=== PATIENT | male | born 2000 | race Caucasian/White ===

== ENCOUNTER 2024-05-18 00:37 | Emergency (ER) | payer BC, SELFPAY ==
--- NOTE | 2024-05-18 00:46 | ED_ITS ---
HPI - General Adult General Chief complaint: Chest Pain Stated complaint: Chest pain Time Seen by Provider: 05/18/24 00:39 History of Present Illness HPI narrative: Patient c/o intermittent CP , SOB for 2 months. Patient states it has been worse in the last 2-3 days, and especially worse waking him up from sleep. 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 Patient took 800mg ibuprofen @ noon for a BALL. 23-year-old man presenting to the emergency department with his father with concern of intermittent chest pain and exertional short of breath over the last couple of months. Has episodes where he will wake with this from sleep, heart beating hard. This has been more intense over the last 2-3 days. Underlying history of Xtaln-Gnoisncqp-Vniop and has passed stress test He has also been having headache. No fever. No cough or cold symptoms. Admits to increased anxiety over this. 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 Reserved. Appears mildly anxious. Skin is warm and dry. Cranial nerves 2-12 intact. Lungs are clear. No supraclavicular crepitus. Heart in regular rate and rhythm. Abdomen overweight soft nontender extremities are well perfused without edema. Const: Vital Signs, click to edit/add: Vital Signs - 24 hr 05/18/24 00:48 05/18/24 01:00 05/18/24 01:30 Temperature 98.0 F Pulse Rate [Right Pulse Oximeter] 80 75 84 Respiratory Rate 18 20 12 Blood Pressure [Le ft Upper Arm] 158/92 H 173/109 H 128/63 Pulse Oximetry 100 98 99 Oxygen Delivery Me thod Room Air 05/18/24 02:00 05/18/24 02:30 05/18/24 03:00 Temperature Pulse Rate [Right Pulse Oximeter] 69 67 80 Respiratory Rate 20 19 19 Blood Pressure [Le ft Upper Arm] 131/62 141/77 H 130/58 L Pulse Oximetry 98 96 99 Oxygen Delivery Nh thod Documenting provider has reviewed patient's vital signs: yes Course Vital Signs Vital signs: Initial Vital Signs Respiratory Effort Normal, Spontaneous, Non-Labored 05/18/24 00:38 Respiratory Depth Normal 05/18/24 00:38 Respiratory Pattern Normal 05/18/24 00:38 Vital Signs Temperature 98.0 F 05/18/24 00:48 Pulse Rate 80 05/18/24 00:48 Respiratory Rate 18 05/18/24 00:48 Blood Pressure 158/92 H 05/18/24 00:48 Pulse Oximetry 100 05/18/24 00:48 Oxygen Delivery Method Room Air 05/18/24 00:48 Temperature 98.0 F 05/18/24 00:48 Pulse Rate 80 05/18/24 03:00 Respiratory Rate 19 05/18/24 03:00 Blood Pressure 130/58 L 05/18/24 03:00 Pulse Oximetry 99 05/18/24 03:00 Oxygen Delivery Method Room Air 05/18/24 00:48 Medical Decision Making MDM Narrative Medical decision making narrative: Certainly concerning his underlying history of WPW but has been worked up in this regard apparently with reassuring findings. Is possible this might be contributing to some sort of tachyarrhythmia. These also could be amplification is of underlying anxiety with panic attacks. I do not think this is primarily ischemic cardiovascular disease. No persistent symptoms to suggest pulmonary emboli or pneumothorax. Doubtful dissection. Will monitor on flatwork finisher hand. I did review EKG is below. Check labs, look for indication of ischemic injury. Did not feel he needed any treatment interventions during time in the ER. Labs are wholly reassuring. Chest x-ray one-view independently reviewed by me is without effusion or pneumothorax. Normal mediastinum. Normal cardiac silhouette. Could do longer term monitoring with a ZIO patch. Discussed this and was placed prior to departure. Would also like to offer some treatment for what I think are flares of anxiety. See patient discharge plan for further discussion Your preliminary diagnosis is WPW, palpitations, anxiety. Please return the ZIO patch as scheduled.? Would anticipate results being ready for follow-up with your primary care provider in about a week after that. It does seem as though you have been stressing over these episodes.? Hydroxyzine also known as Vistaril, might be helpful.? I am giving you a prescription for this. Medical Records Medical records reviewed: Yes I reviewed the patient's medical records Lab Data Labs: Lab Results 05/18/24 Range/Units 00:56 WBC 8.14 (4.50-11.00) K/uL RBC 5.45 (4.30-5.90) m/uL Hgb 14.5 (13.5-17.5) gm/dL Hct 44.0 (37.0-53.0) % MCV 81 (80-100) fL MCH 27 (26-34) pg MCHC 33 (32-36) gm/dL Plt Count 273 (140-440) K/uL Neut % (Auto) 58.6 (42.0-72.0) % Lymph % (Auto) 30.8 (20-44) % Larue % (Auto) 8.5 (0.0-11.0) % Eos % (Auto) 1.0 (0.0-7.0) % Baso % (Auto) 0.7 (0.0-3.0) % Neut # (Auto) 4.80 (1.7-7.0) K/uL Lymph # (Auto) 2.50 (0.90-2.90) K/uL Larue # (Auto) 0.70 (0.00-0.90) K/UL Eos # (Auto) 0.10 (0.00-0.50) K/uL Baso # (Auto) 0.10 (0.00-0.30) K/uL Sodium 140 (135-149) mmol/L Potassium 3.7 (3.6-5.1) mmol/L Chloride 105 (96-114) mmol/L Carbon Dioxide 23 (20-32) mmol/L Anion Gap 12 (7-15) mEq/L BUN 14 (5-24) mg/dL Creatinine 0.9 (0.5-1.5) mg/dL Estimated Creat Clear 137.72 Estimated GFR 122 ml/min Glucose 90 (60-115) mg/dL Calcium 9.3 (8.4-10.6) mg/dL Troponin I < 0.01 L (0.01-0.04) ng/mL NT-Pro-B Natriuret Pep 20 pg/mL TSH 4.790 H (0.270-4.20) uIU/mL ECG Data Attestation: I personally reviewed and interpreted this ECG as follows: (Normal sinus rhythm. Subtle delta wave, irregularity to QRS complex consistent with WPW) Discharge Plan Discharge Clinical Impression: Heart palpitations, Anxiety, Xqour-Crncrbtsz-Qafpu (WPW) syndrome Patient Disposition: Home w/ Parent or Adult Condition: Improved Additional Instructions: Your preliminary diagnosis is WPW, palpitations, anxiety. Please return the ZIO patch as scheduled.? Would anticipate results being ready for follow-up with your primary care provider in about a week after that. It does seem as though you have been stressing over these episodes.? Hydroxyzine also known as Vistaril, might be helpful.? I am giving you a prescription for this. Stand Alone Forms: [employer] Info Instructions
[2024-05-18 00:48] VITALS: BP 158/92; PULSE 80; RESP 18; TEMP 36.7; O2SAT 100; BMI 44.8
[2024-05-18 01:00] VITALS: BP 173/109; PULSE 75; RESP 20; O2SAT 98
[2024-05-18 01:30] VITALS: BP 128/63; PULSE 84; RESP 12; O2SAT 99
[2024-05-18 02:00] VITALS: BP 131/62; PULSE 69; RESP 20; O2SAT 98
[2024-05-18 02:30] VITALS: BP 141/77; PULSE 67; RESP 19; O2SAT 96
[2024-05-18 03:00] VITALS: BP 130/58; PULSE 80; RESP 19; O2SAT 99
--- NOTE | 2024-05-18 05:21 | XR_ITS ---
Patient: MUNIR GRIFFIN Facility:?[facility] Patient ID:?[id number] Site Patient ID:?[id number]. Site :?2000 Study:?XRay-Chest pcxr 1v-05/18/2024 1:29:35 AM Ordering Physician:JAKI Final Report: INDICATION: Chest pain. TECHNIQUE: Chest 1 views. COMPARISON: None. FINDINGS: The cardiac silhouette is magnified. The trachea is midline. No confluent airspace opacity appreciated. Low lung volumes. No pleural effusion or pneumothorax. No acute osseous abnormality. IMPRESSION: No acute cardiopulmonary abnormality. Dictated by Reymundo Orantes MD @ 05/18/2024 2:47:19 AM Signed by:?Reymundo Orantes MD @05/18/2024 2:47:19 AM (Electronic Signature)
[2024-05-18 05:41] LABS: Basophils Percent Auto 0.7 % (0.0-3.0); Hemoglobin* 14.5 gm/dL (13.5-17.5); Lymphocytes Percent Auto 30.8 % (20-44); Mean Corpuscular HGB Conc 33 gm/dL (32-36); Mean Corpuscular Hemoglobin 27 pg (26-34); Mean Corpuscular Volume 81 fL (80-100); Monocytes Percent Auto 8.5 % (0.0-11.0); Neutrophils Percent Auto 58.6 % (42.0-72.0); Platelet Count* 273 K/uL (140-440); Red Blood Count 5.45 m/uL (4.30-5.90); White Blood Count* 8.14 K/uL (4.50-11.00)
[2024-05-18 05:42] LABS: Slide Review Reflex No; Sodium* 140 mmol/L (135-149)
[2024-05-18 05:43] LABS: Anion Gap 12 mEq/L (7-15); Blood Urea Nitrogen* 14 mg/dL (5-24); Calcium* 9.3 mg/dL (8.4-10.6); Carbon Dioxide* 23 mmol/L (20-32); Chloride* 105 mmol/L (96-114); Creatinine* 0.9 mg/dL (0.5-1.5); Est. Creatinine Clearance* 137.72; Estimated Glomerular Filt Rate 122 ml/min; Glucose* 90 mg/dL (60-115); NT Pro B Type NatriureticPept* 20 pg/mL; Potassium* 3.7 mmol/L (3.6-5.1); Troponin I* < 0.01 ng/mL (0.01-0.04)
== END 2024-05-18 03:37 | disposition home or self-care (01) ==
PROVIDERS: Emergency Provider Family Medicine
DX: R00.2 Palpitations (principal); I45.6 Pre-excitation syndrome
CPT/HCPCS: 36415; 71045; 80048; 83880; 84443; 84484; 85025; 93005; 93246; 99284; 99285

== ENCOUNTER 2024-07-18 09:50 | Outpatient (CLI) | payer BC, SELFPAY | END 2024-07-18 09:51 | disposition home or self-care (01) | LOC: RAD 09:51 | PROVIDERS: Visit Provider Internal Medicine | DX: I45.6 Pre-excitation syndrome (principal) | CPT/HCPCS: 93306 ==

== ENCOUNTER 2025-01-07 23:16 | Emergency (ER) | payer OTHER, SELFPAY ==
--- OUTSIDE RECORDS SUMMARY | 2025-01-07 23:18 | XMS_ITS | Clinical Summary ---
Author Organization [facility] Address [address] [place] [address] Care Team Providers Care Gutter Mouth Cutter Name Role Phone Needs Pcp, Assignment Primary Care Provider [phone] Source Comments You are receiving this document as you are listed as the primary care provider,follow-up provider, or the patient has been referred to you for consultation.This is in compliance with the Medicare and[facility] Incentive [facility],which states Providers who transition their patient to another setting of careor provider of care or refers their patient to another provider of care shouldprovide summary care record for each transition of care or referral. [facility] Allergies No known active allergies Medications ibuprofen (MOTRIN) 200 MG tablet Take 200-400 mg by mouth every 4 hours as needed for Pain. Active Active Problems No known active problems Social History Tobacco Use Types Packs/Day Years Used Date Smoking Tobacco: Every Day Cigarettes 1 2 Smokeless Tobacco: Never Sex and Gender Information Value Date Recorded Sex Assigned at Not on file Legal Sex Male 4:49 PM CDT Gender Identity Not on file Sexual Orientation Not on file Last Filed Vital Signs Vital Sign Reading Time Taken Comments Blood Pressure 176/85 02/28/2022 10:44 AM CDT Pulse 110 02/28/2022 10:44 AM CDT Temperature 37 C (98.6 F) 02/28/2022 10:44 AM CDT Respiratory Rate 16 02/28/2022 10:44 AM CDT Oxygen Saturation 100% 02/28/2022 10:44 AM CDT Inhaled Oxygen Concentration - - Weight - - Height - - Body Mass Index - - Plan of Treatment Health Maintenance Due Date Last Done Comments Hep C Screening (Preventive Services) 1998 HPV Vaccine (1 - Male 3-dose series) 2013 HIV Screening (Preventive Services) 2014 Adult Preventive Visit 2016 DTaP/Tdap/Td Vaccine (1 - Tdap) 2017 HepB Vaccine (1) 2017 Pneumococcal Vaccine (1 of 2 - PCV) 2017 COVID-19 Vaccine (1 - 2023-2 5 season) 2024 Influenza Vaccine (#1) 2025 Zoster/Shingles Vaccine (1 of 2) 2048 HepA Vaccine Aged Out No longer eligi ble based on patient's age to complete this topic Hib Vaccine Aged Out No longer eligi ble based on patient's age to complete this topic IPV (Polio) Vaccine Aged Out No longe r eligible based on patient's age to complete this topic MCV4 Vaccine Aged Out No longer eligi ble based on patient's age to complete this topic Meningococcal B Vaccine Aged Out No l onger eligible based on patient's age to complete this topic Insurance [facility] [employer] Care Teams Gutter Mouth Cutter Relationship Specialty Start Date End Date Needs Pcp, [place] [address] PCP - General 03/08/20
--- OUTSIDE RECORDS SUMMARY | 2025-01-07 23:18 | XMS_ITS | Clinical Summary ---
Author Organization [facility] Address [address] [place] [address]. [place] [address] Care Team Providers Care News Copy Editor Name Role Phone Maurice Campbell MD Unavailable + No Ref-Primary, Physician Primary Care Provider Allergies No known active allergies Medications cyclobenzaprine (FLEXERIL) 10 MG tablet Take 1 tablet (10 mg) by mouth 3 times daily as needed for muscle spasms 20 tablet 03/07/2023 Active naproxen (NAPROSYN) 500 MG tablet Take 1 tablet (500 mg) by mouth 2 times daily (with meals) 24 tablet 03/07/2023 Active Social History Tobacco Use Types Packs/Day Years Used Date Smoking Tobacco: Every Day Vaping Device Smokeless Tobacco: Never Tobacco Cessation:Ready to Q uit: Not Asked; Counseling Given: Not Answered Alcohol Use Standard Drinks/Week Comments Not Currently 0 (1 standard drink = 0.6 oz pur e alcohol) occ Adolescent Education Answer Date Record ed Getting School Help Needed Not on file 03/03 Sex and Gender Information Value Date Recorded Sex Assigned at Not on file Legal Sex Male 11:53 AM TECHNICAL INTERN Gender Identity Not on file Sexual Orientation Not on file Last Filed Vital Signs Vital Sign Reading Time Taken Comments Blood Pressure 156/102 03/07/2023 5:27 PM CDT Pulse 74 03/07/2023 5:27 PM CDT Temperature 36.6 C (97.8 F) 03/07/2023 10:15 AM CDT Respiratory Rate 12 03/07/2023 5:27 PM CDT Oxygen Saturation 99% 03/07/2023 5:27 PM CDT Inhaled Oxygen Concentration - - Weight 142.9 kg (315 lb) 10/04/2022 12:45 PM CDT Height 182.9 cm (6') 10/04/2022 12:45 PM CDT Body Mass Index 42.72 10/04/2022 12:45 PM CDT Plan of Treatment Health Maintenance Due Date Last Done Comments ADVANCE CARE PLANNING 1998 ANNUAL REVIEW OF HM ORDERS 1998 YEARLY PREVENTIVE VISIT 2001 HIV SCREENING 2013 HPV VACCINE (1 - Male 3-dose series) 2013 HEPATITIS C SCREENING 2016 HEPATITIS B VACCINE (1 of 3 - 19+ 3-dose series) 2017 PNEUMOCOCCAL VACCINE: PEDIAT RICS (0 to 5 YEARS) AND AT-RISK PATIENTS (6 to 49 YEARS) (1 of 2 - PCV) 2017 DTAP/TDAP/TD VACCINE (1 - Tdap) 2023 COVID-19 VACCINE (1 - 2023-2 5 season) 2024 BMP 03/07/2024 03/07/2023 PHQ-2 (once per calendar year) 2024 INFLUENZA VACCINE (#1) 2025 ZOSTER VACCINE (1 of 2) 2048 MENINGITIS VACCINE Aged Out No longer eligible based on patient's age to complete this topic Procedures Procedure Name Priority Date/Time Associated Diagnosis Comments BASIC METABOLIC PANEL STAT 03/07/2023 10:20 AM CDT from Last 3 Months or Most Recently Relevant to Health Maintenance Results * Basic metabolic panel (03/07/2023 10:20 AM CDT) Sodium 142 135 - 145 mmol/L 03/07/2023 10:56 AM CDT [facility] Comment:Reference intervals for this test were updated on 03/06/2023 to more accurately reflect our healthy population. There may be differences in the flagging of prior results with similar values performed with this method. Interpretation of those prior results can be made in the context of the updated reference intervals. Potassium 4.2 3.4 - 5.3 mmol/L 03/07/2023 10:56 AM CDT [facility] Chloride 106 98 - 107 mmol/L 03/07/2023 10:56 AM CDT LABORATORY Carbon Dioxide (CO2) 26 22 - 29 mmol/L 03/07/2023 10:56 AM CDT LABORATORY Anion Gap 10 7 - 15 mmol/L 03/07/2023 10:56 AM CDT LABORATORY Urea Nitrogen 14.8 6.0 - 20.0 mg/dL 03/07/2023 10:56 AM CDT LABORATORY Creatinine 1.03 0.67 - 1.17 mg/dL 03/07/2023 10:56 AM CDT LABORATORY GFR Estimate >90 >60 mL/min/1. 73m2 03/07/2023 10:56 AM CDT LABORATORY Calcium 9.7 8.6 - 10.0 mg/dL 03/07/2023 10:56 AM CDT LABORATORY Glucose 93 70 - 99 mg/dL 03/07/2023 10:56 AM CDT LABORATORY Blood BLOOD SPECIMEN / Unknown Venipuncture / Unknown 03/07/2023 10:20 AM CDT 03/07/2023 10:29 AM CDT Yonatan Hassan MD LAB - BLOOD ORDERABLES Final Result LABORATORY [facility] [address] [facility] (1st floor, no room number) [place] [address], [facility] [phone] from Last 3 Months or Most Recently Relevant to Health Maintenance Insurance [address] [place] [id number] [employer] Care Teams News Copy Editor Relationship Specialty Start Date End Date No Ref-Primary, Physician PCP - General 10/04/22 Maurice Campbell MD [address] [facility] [address] [place] [id number] Cardiovascular Disease 07/13/22
[2025-01-07 23:22] VITALS: BP 151/100; PULSE 91; RESP 20; TEMP 36.6; O2SAT 98; BMI 46.6
[2025-01-08 00:45] VITALS: BP 146/116; PULSE 112; RESP 18; TEMP 37.1; O2SAT 100
--- NOTE | 2025-01-08 01:06 | ED.BACK ---
HPI - Back Pain/Injury General Time Seen by Provider: 01:09 Date Seen: 01/08/25 Chief Complaint: Back Injury/Pain Stated Complaint: back pain Time Seen by Provider: 01/08/25 00:41 Source: patient Mode of arrival: ambulatory Limitations: no limitations History of Present Illness HPI Narrative: 24-year-old male who comes in today with back pain. Patient notes last week he was bending forward at work for a long period of time, no specific injury noted, that night developed some back tightness with worsening overnight. Pain in the low back, occasionally radiates into the posterior lateral right leg, no weakness, no numbness, no bowel or bladder incontinence. Has been taking Tylenol ibuprofen but continued pain and so presented to the emergency department. Has not been able work this week due to pain. Related Data Home Medications ?Medication ?Instructions ?Recorded ?Confirmed amlodipine 5 mg tablet 5 mg PO QDAY 07/03/24 01/07/25 Held on 01/07/25. Instructions: Doctor's Order Previous Rx's ?Medication ?Instructions ?Recorded sertraline 25 mg tablet (Zoloft) 25 mg PO QDAY #90 tabs 08/27/24 Held on 01/07/25. Instructions: Doctor's Order Allergies Allergy/AdvReac Type Severity Reaction Status Date / Time No Known Drug Allergies Allergy Verified 07/03/24 09:25 [facility] Medical History (Updated 01/08/25 @ 01:23 by Garrison Mahmood MD) Anxiety ?F41.9 - Anxiety disorder, unspecified (ICD-10) WPW (Zcjxc-Ustncxwxy-Hydff syndrome) ?I45.6 - Pre-excitation syndrome (ICD-10) Social History Smoking Status: Never smoker Do you use any of these nicotine containing products: E-Cigarettes Second hand tobacco smoke exposure: No How often do you have a drink containing alcohol: monthly or less How many standard drinks containing alcohol do you have on a typical day: 1 or 2 How often do you have six or more drinks on one occasion: Never AUDIT-C Alcohol total score: 1 Non-prescribed substance use: denies use service: No Exam Narrative: Exam Narrative: General: well nourished , NAD Head: Atraumatic and normocephalic ENT: External ears and external nose are normal Eyes: Conjunctiva clear, pupils are equal reactive, external ocular motions are intact Neck: Full spontaneous range of motion of the neck Lungs: No respiratory distress Musculoskeletal: No tenderness or deformity. No midline lumbar tenderness, no palpable tenderness the paraspinous muscular. Patient unable to stand up straight from sitting position due to pain, extension to about-10 degrees. Neurologic: No gross focal neurologic deficits Skin: No rashes Psych: Mood and affect are appropriate Const: Vital Signs, click to edit/add: Vital Signs - 24 hr 01/07/25 23:22 01/08/25 00:45 Temperature 97.8 F 98.8 F Pulse Rate [Pulse Oximeter] 91 112 H Respiratory Rate 20 18 Blood Pressure [Ri ght Upper Arm] 151/100 H 146/116 H Pulse Oximetry 98 100 Oxygen Delivery Me thod Room Air Room Air Course Course ED Course: Reviewed most recent cardiology note from June 2024 when patient was seen for follow-up of WPW, he did have a Zio patch in late 2023 which showed prominent delta wave consistent with WPW throughout the recording and 1 run of V-tach lasting 5 beats, is to see EP for ablation, normal echocardiogram July 2024. Patient presents today with low back pain. No specific injury, gradual onset pain after prolonged bending at work. No evidence for cauda equina syndrome, no weakness or numbness, no indication for emergent MRI at this time. Symptoms are most consistent with acute low back pain and sciatic into the right leg. Patient was started on prednisone, Flexeril, oxycodone as needed for pain. Follow-up with physical therapy and primary care, activity as tolerated. Encouraged patient to follow-up with cardiology for his WPW. Vital Signs Vital signs: Initial Vital Signs Temperature 97.8 F 01/07/25 23:22 Temperature Source Temporal Artery Scan 01/07/25 23:22 Pulse Rate 91 01/07/25 23:22 Respiratory Rate 20 01/07/25 23:22 Blood Pressure 151/100 H 01/07/25 23:22 Blood Pressure Mean 117 H 01/07/25 23:22 Blood Pressure Position Sitting 01/07/25 23:22 Pulse Oximetry 98 01/07/25 23:22 Oxygen Delivery Method Room Air 01/07/25 23:22 Vital Signs Temperature 97.8 F 01/07/25 23:22 Pulse Rate 91 01/07/25 23:22 Respiratory Rate 20 01/07/25 23:22 Blood Pressure 151/100 H 01/07/25 23:22 Pulse Oximetry 98 01/07/25 23:22 Oxygen Delivery Method Room Air 01/07/25 23:22 Temperature 98.8 F 01/08/25 00:45 Pulse Rate 112 H 01/08/25 00:45 Respiratory Rate 18 01/08/25 00:45 Blood Pressure 146/116 H 01/08/25 00:45 Pulse Oximetry 100 01/08/25 00:45 Oxygen Delivery Method Room Air 01/08/25 00:45 Discharge Plan Discharge Clinical Impression: Acute low back pain with sciatica Patient Disposition: Home, Self-Care Condition: Stable Instructions: Acute Low Back Pain (ED) Additional Instructions: Continue Tylenol and ibuprofen as needed for pain Take prednisone as prescribed. Take oxycodone and Flexeril as needed. Do not drive or operate machinery while you are taking oxycodone Follow-up with your primary care provider in 5-7 days Start physical therapy Activity Level: Activity as Tolerated Discharge Diet: Regular Prescriptions: No Action amlodipine 5 mg tablet 5 mg PO QDAY sertraline [Zoloft] 25 mg tablet 25 mg PO QDAY Qty: 90 3RF Follow Up/Referrals: Edison Bella MD [Primary Care Provider, Internal Medicine] Stand Alone Forms: [employer] Info Instructions
--- OUTSIDE RECORDS SUMMARY | 2025-01-08 01:43 | XMS_ITS | Clinical Summary ---
Author Organization [facility] Address [address] [place] [address] Care Team Providers Care Collection Card Clerk Name Role Phone Needs Pcp, Assignment Primary Care Provider [phone] Source Comments You are receiving this document as you are listed as the primary care provider,follow-up provider, or the patient has been referred to you for consultation.This is in compliance with the Medicare and[facility],which states Providers who transition [...] patient's age to complete this topic Insurance [facility] [employer] Care Teams Collection Card Clerk Relationship Specialty Start Date End Date Needs Pcp, [place] [address] PCP - General 03/08/20
--- OUTSIDE RECORDS SUMMARY | 2025-01-08 01:43 | XMS_ITS | Clinical Summary ---
Author Organization [facility] Address [address] [place] [address]. 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 Gender Identity Not on file Sexual Orientation [...] LAB - BLOOD ORDERABLES Final Result LABORATORY [facility] Acute [facility] Lab [address] [facility] Lab (1st floor, no room number) [place] [address], [facility] [phone] from Last 3 Months or Most Recently Relevant to Health Maintenance Insurance [address] [place] [id number] [facility] [employer] Care Teams Car Shakeout Operator Relationship Specialty Start Date End Date No Ref-Primary, Physician PCP - General 10/04/22 Maurice Campbell MD [address] [facility] [address] [place] [id number] Cardiovascular Disease 07/13/22
--- OUTSIDE RECORDS SUMMARY | 2025-01-08 01:43 | XMS_ITS | Clinical Summary ---
Author Organization [facility] Address [address] [place] [address] Care Team Providers Care Utility Mechanic Name Role Phone Unavailable Primary Care Provider Unavailabl e Source Comments Patient records contain information from all sites at [facility]. For routine questions regarding patient records, call [phone] during business hours, M-F 8:00 AM - 5:00 PM Central Time. Record requests for emergency care only can be directed to [phone] at any time.[facility] Allergies No known active allergies Medications ibuprofen 200 mg tablet Take 200-400 mg by mouth every 4 (four) hours as needed. Active predniSONE (Deltasone) 20 mg tabletIndication s:Pain Low Back Unspecified Take 2 tablets (40 mg total) by mouth daily. 10 tablet 12/18/2023 Active cyclobenzaprine (FlexeriL) 10 mg tabletIndication s:Pain Low Back Unspecified Take 1 tablet (10 mg total) by mouth at bedtime as needed for muscle spasms. 15 tablet 12/18/2023 Active Social History Tobacco Use Types Packs/Day Years Used Date Smoking Tobacco: Never Assessed Sex and Gender Information Value Date Recorded Sex Assigned at Not on file Legal Sex Male 12:54 PM CDT Gender Identity Not on file Sexual Orientation Not on file Last Filed Vital Signs Vital Sign Reading Time Taken Comments Blood Pressure 150/98 12/18/2023 2:52 PM CDT Pulse 108 12/18/2023 2:52 PM CDT Temperature 36.7 C (98.1 F) 12/18/2023 2:48 PM CDT Respiratory Rate - - Oxygen Saturation 98% 12/18/2023 2:48 PM CDT Inhaled Oxygen Concentration - - Weight - - Height - - Body Mass Index - - Plan of Treatment Health Maintenance Due Date Last Done Comments HIV Screening 1998 Hepatitis C Screening 1998 HPV Vaccines (1 - Male 3-dos e series) 2013 DTaP,Tdap,and Td Vaccines (1 - Tdap) 2017 Hepatitis B Vaccines (1 of 3 - 19+ 3-dose series) 2017 COVID-19 Vaccine ( - 2023-2 5 season) 2024 Depression Screening (Annual PHQ-2) 06/11/2024 Influenza Vaccine (#1) 2025 IPV Vaccines Aged Out No longer eligi ble based on patient's age to complete this topic Pneumococcal vaccine (0-49 years) Aged Out No longer eligible based on patient's age to complete this topic
== END 2025-01-08 02:02 | disposition home or self-care (01) ==
LOC: ED 01-08 01:41
PROVIDERS: Emergency Provider Family Medicine
DX: M54.41 Lumbago with sciatica, right side (principal)
CPT/HCPCS: 96372; 99283; 99284; J1885